=== PATIENT | female | born 1945 | race Caucasian/White ===

== ENCOUNTER 2017-04-16 09:54 | Day surgery (SDC) | payer MEDICARE, OTHER ==
[~2017-04-16 09:54] MED LIST: RINGER'S SOLUTION,LACTATED 1,000 ML IV PRN
[2017-04-16] MEDS: RINGER'S SOLUTION,LACTATED 1,000 ML IV ONE (10:15)
[2017-04-16] MEDS ORDERED: RINGER'S SOLUTION,LACTATED 1,000 ML IV PRN (11:03)
[2017-04-16] MEDS ORDERED: PANTOPRAZOLE SODIUM 40 MG/100 ML PIGGYBACK IV ONE (11:32)
[2017-04-16] MEDS: PANTOPRAZOLE SODIUM 40 MG in NORMAL SALINE 100 ML IV ONE (11:34)
[2017-04-16 12:06] VITALS: BP 130/88
--- NOTE | 2017-04-16 17:01 | OR ---
Operative Report - Dictated Report Narrative: Operative Report Date of operation: 04/16/2017 Preoperative diagnosis: Anemia. No prior dedicated colon studies. GERD symptoms Postoperative diagnosis: Esophagitis. Hiatal hernia. Gastropathy (pathology and CLOtest pending). Diverticulosis Operation: EGD with biopsies. Colonoscopy Surgeon: Dr Thomas Anesthesia: YUDELKA GOULD CRNA Indications for procedure: The patient is a 72-year-old female referred by Dr Kwon. She has significant GERD symptoms. She has a chronic iron deficiency anemia. She has had no previous dedicated colon studies. There is no family history of colon cancer. Findings: Esophagitis. Moderate hiatal hernia. Gastropathy. Significant diverticulosis Narrative of procedure: The patient was identified preoperatively, and prior to the administration of anesthetic a multidisciplinary timeout was observed EGD: With the patient in the recumbent position, a bite-block was placed, intravenous sedation was administered, and the patient's eyes covered with a towel. The flexible fiberoptic gastroscope was advanced into the posterior pharynx which appeared normal. The supraglottic larynx appeared normal. The cords appeared normal, moved well, and opposed in the midline. The scope was advanced under direct vision into the proximal esophagus which appeared normal. The esophagus appeared freely distensible with normal mucosa. The esophageal mucosa appeared normal down to the gastroesophageal junction which was inflamed with friability. The GE junction appeared normally distensible. The scope was advanced into a significant hiatal hernia and then into the stomach which was insufflated with air. There was mild reid gastric erythema but no mejia ulcerations or neoplastic lesions were appreciated including a retroflexed view of the gastric fundus which clearly demonstrated the hiatal hernia. There were several flecks of coffee ground material present. The scope was redirected toward the pylorus. There was erythema of prepyloric folds. The pylorus appeared patent. The scope was advanced into the duodenal bulb which appeared normal. The scope was advanced further to the horizontal portion of the duodenum which appeared normal, specifically the villous architecture appeared well preserved and clear bile was present. The scope was slowly withdrawn through the duodenal bulb with confirmation that no active ulcer was present. The scope was withdrawn into the stomach and key account representative biopsies of gastric mucosa obtained for CLOtest and pathology. The biopsy sites were seen to be hemostatic. The insufflated air was removed, the scope withdrawn from the patient, and this portion of the procedure terminated. COLONOSCOPY: The patient was then placed in the left lateral position, and the perineum was inspected. There was no evidence of pilonidal disease or skin breakdown. The external appearance of the anus was normal. Sphincter tone was good. The flexible fiberoptic colonoscope was inserted into the rectum which was insufflated with air. The rectal mucosa and submucosal vascular pattern appeared normal, the prep was seen to be complete. The scope was advanced through the sigmoid colon, which contained numerous large non-impacted noninflamed diverticular openings. The scope was advanced up the descending colon, and around the splenic flexure where the triangular haustral architecture of the transverse colon was seen. The scope was advanced across the transverse colon, around the hepatic flexure to the cecum, where the confluence of tenia and the ileocecal valve were identified. The mucosa at this level appeared normal. The scope was then slowly withdrawn in a circular fashion so that all aspects of colonic mucosa were inspected. The colon was somewhat capacious and character but normal in course. The haustral architecture appeared well preserved throughout with no evidence of external compression. The mucosa and submucosal vascular pattern appeared normal, specifically there was no gross evidence to suggest colitis or inflammatory bowel disease and no AV malformations were seen. The diverticulosis was moderate in degree and confined primarily to the sigmoid colon. No polyps were encountered. The scope was gradually withdrawn to the level of the rectum. As much insufflated air as possible was removed. The scope was withdrawn from the patient and the procedure terminated. The patient tolerated the anesthetic and procedure well without complication and was transferred back to the ambulatory surgery area awake and in stable condition. The patient remained stable throughout a period of postoperative observation. She denied abdominal discomfort, was able to tolerate by mouth intake, and was up without assistance. I shared the operative findings with the patient and she was given copies of the photographs which appear in the medical record. She was discharged home with instructions not to engage in hazardous activity today , but may resume normal activity tomorrow, and advance diet as tolerated. She is to continue those medications as listed in the history and physical exam. I made arrangements to contact her with the biopsy reports and will make additional recommendations for treatment and follow-up based upon those results. She volunteered marked improvement in her stooling pattern with the use of Benefiber, and it is recommended that she continue this and titrate dose as necessary. Reviewed and electronically signed
== END 2017-04-16 09:55 | disposition home or self-care (01) ==
LOC: AMB 09:54
PROVIDERS: ATTEND Surgery
PROC: 0DJD8ZZ Inspection of Lower Intestinal Tract, Via Natural or Artificial Opening Endoscopic (ICD-10-PCS; principal; 2017-04-16 10:25)
PROC: 0DB68ZX Excision of Stomach, Via Natural or Artificial Opening Endoscopic, Diagnostic (ICD-10-PCS; 2017-04-16 10:25)
DX: Z12.11 Encounter for screening for malignant neoplasm of colon (principal); K57.30 Diverticulosis of large intestine without perforation or abscess without bleeding; K21.0 Gastro-esophageal reflux disease with esophagitis; K29.70 Gastritis, unspecified, without bleeding; K44.9 Diaphragmatic hernia without obstruction or gangrene; I10 Essential (primary) hypertension; E78.5 Hyperlipidemia, unspecified; M19.90 Unspecified osteoarthritis, unspecified site; Z68.32 Body mass index [BMI] 32.0-32.9, adult
CPT/HCPCS: 43239; 87081; 88305; 88312; 88313; G0121